=== PATIENT | female | born 1980 | race Caucasian/White ===

== ENCOUNTER → 2017-07-11 | Outpatient (CLI) | payer OTHER ==
[~2017-07-11] VITALS: Ht 167.6 cm; Wt 68.0 kg
[~2017-07-11] MED LIST: FLONASE16 G1 BOTH NARES; MOTRIN800 MG PO; PRENATAL TABLE1 EAC3 PO; VALTREX1000 MG PO; VALTREX50 MG/ML PO; ZYRTEC10 M3 PO
[2017-07-11 11:12] VITALS: BP 124/67
== END | disposition home or self-care (01) ==
LOC: IVINF 10:52
DX: Z31.82 Encounter for Rh incompatibility status (principal); Z3A.00 Weeks of gestation of pregnancy not specified; O03.9 Complete or unspecified spontaneous abortion without complication
CPT/HCPCS: 96372; J2790

== ENCOUNTER → 2018-05-25 | Outpatient (CLI) | payer OTHER ==
[~2018-05-25] VITALS: Ht 167.6 cm; Wt 75.0 kg
[2018-05-25 08:33] VITALS: BP 109/67
== END | disposition home or self-care (01) ==
LOC: IVINF 08:26
DX: Z34.83 Encounter for supervision of other normal pregnancy, third trimester (principal); Z31.82 Encounter for Rh incompatibility status; Z3A.28 28 weeks gestation of pregnancy; Z67.41 Type O blood, Rh negative
CPT/HCPCS: 96372; J2790